=== PATIENT | male | born 1955 | race Caucasian/White ===

== ENCOUNTER 2021-04-03 11:10 | Outpatient (CLI) | payer MEDICARE, MEDICAID, SELFPAY | END 2021-04-03 11:11 | disposition home or self-care (01) | LOC: ANHAUDIO 11:15 | PROVIDERS: PCP Internal Medicine Gastroenterology; Visit Provider Internal Medicine Gastroenterology | DX: H91.90 Unspecified hearing loss, unspecified ear (principal) | CPT/HCPCS: 92557; 92567 ==

== ENCOUNTER 2021-05-01 08:00 | Outpatient (RCR) | payer MEDICAID, SELFPAY | END 2021-05-01 23:59 | disposition home or self-care (01) | LOC: ANHAUDIO 08:00 | PROVIDERS: PCP Internal Medicine Gastroenterology; Visit Provider Internal Medicine Gastroenterology | DX: Z46.1 Encounter for fitting and adjustment of hearing aid (principal) | CPT/HCPCS: 99199; V5160; V5261 ==